=== PATIENT | female | born 1965 | race Hispanic/Latino ===

== ENCOUNTER 2018-03-16 15:04 | Emergency (ER) | payer OTHER ==
[~2018-03-16] VITALS: Ht 162.6 cm; Wt 77.3 kg
--- OUTSIDE RECORDS SUMMARY | 2018-03-16 15:08 | XMS REPORT | Clinical Summary ---
Author Author [facility] Address Unknown Phone Unavailable Care Team Providers Care Bakery Manager Name Role Phone PCP Unavailable Allergies Not on File Medications Not on file Active Problems Not on file Encounters Care Team Description Date Type Specialty 12/09/2017 Clinical Corporate Wellness Support after 03/15/2017 Immunizations Name Dates Previously Given Next Due FLUCELVAX QUAD PF (0.5mL 12/09/2017 syringe) Social History Date Tobacco Use Types Packs/Day Years Used Never Assessed Sex Assigned at Date Recorded Not on file Industry Job Start Date Occupation Not on file Not on file Not on file Travel End Travel History Travel Start No recent travel history available. Last Filed Vital Signs Not on file Plan of Treatment Health Maintenance Due Date Last Done Comments CERVICAL CANCER SCREENING 1985 BREAST CANCER SCREENING 2014 COLON CANCER SCREENING 2014 SHINGLES VACCINES (1 of 2014 2) INFLUENZA VACCINE Completed 12/09/2017 Results Not on fileafter 03/15/2017 Insurance Payer Benefit Subscriber ID Type Phone Address Plan / Group CIGNA CIGNA OPEN xxxxxxxxxxx HMO ACCESS/NET WORK Advance Directives Patient has advance care planning documents on file. For more information, huong enriquez contact: Guilherme Larson [address] [place] [address]
[2018-03-16] MEDS ORDERED: CLONIDINE HCL 0.1 MG TAB PO ONE (15:45)
--- NOTE | 2018-03-16 16:12 | Diagnostic Imaging Report ---
EXAM: XR CHEST 2 VIEWS DATE: 03/16/2018 12:00 AM INDICATION: Pain COMPARISON: None FINDINGS: Lines and Tubes: None Heart and Mediastinum: No acute cardiomediastinal findings. Lungs and Pleura: No significant pleural effusion, pneumothorax, or focal consolidation. Bones and Soft Tissues: No acute findings. IMPRESSION: 1. No acute cardiopulmonary findings. Signed by: Dr. Lawson Wiggins MD on 03/16/2018 4:09 PM
[2018-03-16] MEDS ORDERED: FAMOTIDINE 20 MG/2 ML VIAL IV ONE (16:45)
[2018-03-16] MEDS ORDERED: ACETAMINOPHEN 325 MG TAB PO ONE (16:45)
[2018-03-16 18:51] VITALS: BP 137/88
== END 2018-03-16 18:58 | disposition home or self-care (01) ==
LOC: FSED 15:04
DX: R07.89 Other chest pain (principal); F41.1 Generalized anxiety disorder; I10 Essential (primary) hypertension
CPT/HCPCS: 71046; 80053; 81003; 82553; 84484; 93005; 99284